=== PATIENT | male | born 1950 | race Caucasian/White ===

== ENCOUNTER 2016-07-07 13:18 | Outpatient (CLI) | payer MEDICARE, OTHER | END 2016-07-07 13:19 | disposition home or self-care (01) | DX: D64.9 Anemia, unspecified (principal); E29.1 Testicular hypofunction ==

== ENCOUNTER 2016-08-02 13:04 | Outpatient (CLI) | payer MEDICARE, OTHER ==
[2016-08-02 18:37] LABS: TOTAL T3 1.03 ng/mL (0.87-1.78)
[2016-08-02 18:48] LABS: THYROID STIMULATING HORMONE 1.88 uIU/mL (0.34-5.60)
== END 2016-08-02 13:05 | disposition home or self-care (01) ==
LOC: LAB.F 13:04
PROVIDERS: ATTEND Internal Medicine Endocrinology, Diabetes & Metabolism
DX: D35.2 Benign neoplasm of pituitary gland (principal)
CPT/HCPCS: 36415; 84439; 84443; 84480

== ENCOUNTER 2016-10-04 10:36 | Outpatient (CLI) | payer MEDICARE, OTHER ==
[2016-10-04 18:44] LABS: BASOPHILS % (AUTO) 0.5 %; EOSINOPHILS # (AUTO) 0.1 10^3/uL (0.0-0.7); EOSINOPHILS % (AUTO) 1.4 %; HCT - HEMATOCRIT 41.2 % (42.0-52.0); LYMPHOCYTES # (AUTO) 1.8 10^3/uL (1.5-3.5); LYMPHOCYTES % (AUTO) 22.8 %; MEAN CORPUSCULAR HEMOGLOBIN 28.8 pg (27.0-31.0); MEAN CORPUSCULAR HGB CONC 33.9 g/dL (32.0-36.0); MEAN CORPUSCULAR VOLUME 84.8 fL (80.0-94.0); MEAN PLATELET VOLUME 7.9 fL (7.4-11.4); MONOCYTES # (AUTO) 0.7 10^3/uL (0.0-1.0); MONOCYTES % (AUTO) 8.7 %; NEUTROPHILS # (AUTO) 5.1 10^3/uL (1.5-6.6); NEUTROPHILS % (AUTO) 66.6 %; NUCLEATED RED BLOOD CELLS AUTO 0.1 /100WBC; RED BLOOD COUNT 4.86 10^6/uL (4.70-6.10); RED CELL DISTRIBUTION WIDTH 12.9 % (12.0-15.0); UNCORRECTED WHITE BLOOD COUNT 7.7 x10^3/uL; WHITE BLOOD COUNT 7.7 x10^3/uL (4.8-10.8)
[2016-10-04 19:01] LABS: FREE T3 3.09 pg/mL (2.5-3.9)
[2016-10-04 19:09] LABS: PROLACTIN 15.93 ng/mL
[2016-10-04 19:11] LABS: ALBUMIN/GLOBULIN RATIO 1.6 (1.0-2.2); BILIRUBIN,TOTAL 0.7 mg/dL (0.2-1.0); CALCIUM 9.1 mg/dL (8.5-10.3); CREATININE 0.9 mg/dL (0.6-1.2); POTASSIUM 3.7 mmol/L (3.5-5.0); TOTAL PROTEIN 6.8 g/dL (6.7-8.2)
[2016-10-04 19:21] LABS: THYROID STIMULATING HORMONE 1.57 uIU/mL (0.34-5.60)
== END 2016-10-04 10:37 | disposition home or self-care (01) ==
LOC: LAB.F 10:36
PROVIDERS: ATTEND Nurse Practitioner Family
DX: E22.1 Hyperprolactinemia (principal); E29.1 Testicular hypofunction; E03.9 Hypothyroidism, unspecified; D64.9 Anemia, unspecified
CPT/HCPCS: 36415; 80053; 82607; 83540; 84146; 84403; 84439; 84443; 84466; 84481; 85025

== ENCOUNTER 2017-03-31 08:26 | Outpatient (CLI) | payer MEDICARE, OTHER ==
[2017-03-31 11:41] LABS: BASOPHILS % (AUTO) 0.4 %; EOSINOPHILS # (AUTO) 0.1 10^3/uL (0.0-0.7); EOSINOPHILS % (AUTO) 1.9 %; HGB - HEMOGLOBIN 10.9 g/dL (14.0-18.0); LYMPHOCYTES # (AUTO) 1.4 10^3/uL (1.5-3.5); LYMPHOCYTES % (AUTO) 18.7 %; MEAN CORPUSCULAR HEMOGLOBIN 26.7 pg (27.0-31.0); MEAN CORPUSCULAR HGB CONC 33.7 g/dL (32.0-36.0); MEAN CORPUSCULAR VOLUME 79.1 fL (80.0-94.0); MEAN PLATELET VOLUME 7.7 fL (7.4-11.4); MONOCYTES # (AUTO) 0.8 10^3/uL (0.0-1.0); MONOCYTES % (AUTO) 10.2 %; NEUTROPHILS # (AUTO) 5.2 10^3/uL (1.5-6.6); NEUTROPHILS % (AUTO) 68.8 %; PLT - PLATELET COUNT 331 10^3/uL (130-450); RED BLOOD COUNT 4.09 10^6/uL (4.70-6.10); RED CELL DISTRIBUTION WIDTH 13.4 % (12.0-15.0); WHITE BLOOD COUNT 7.6 x10^3/uL (4.8-10.8)
[2017-03-31 12:01] LABS: % IRON SATURATION 4 % (20-50); ALBUMIN 3.8 g/dL (3.2-5.5); ALBUMIN/GLOBULIN RATIO 1.4 (1.0-2.2); ALKALINE PHOSPHATASE 53 IU/L (42-121); ALT ALANINE AMINOTRANSFERASE 27 IU/L (10-60); AST ASPARTATE AMINOTRANSFERASE 24 IU/L (10-42); BILIRUBIN,TOTAL 0.5 mg/dL (0.2-1.0); BUN - BLOOD UREA NITROGEN 16 mg/dL (6-20); CALCIUM 8.8 mg/dL (8.5-10.3); CARBON DIOXIDE - CO2 26 mmol/L (21-32); CHLORIDE 105 mmol/L (101-111); CHOLESTEROL 177 mg/dL; CREATININE 0.9 mg/dL (0.6-1.2); GFR - MDRD 84 (>89); GLUCOSE 92 mg/dL (70-100); HDL CHOLESTEROL 59 mg/dL; IRON 17 ug/dL (45-182); LDL CHOLESTEROL,CALCULATED 90 mg/dL; LDL/HDL RATIO 1.5 (<3.6); SODIUM 137 mmol/L (135-145); TOTAL IRON BINDING CAPACITY 469 ug/dL (250-450); TOTAL PROTEIN 6.6 g/dL (6.7-8.2); TRANSFERRIN 335 mg/dL (180-329); VLDL CHOLESTEROL 28 mg/dL
[2017-03-31 12:09] LABS: FREE T3 3.43 pg/mL (2.5-3.9)
[2017-03-31 12:10] LABS: THYROID STIMULATING HORMONE 1.98 uIU/mL (0.34-5.60)
[2017-03-31 12:12] LABS: FREE T4 (FREE THYROXINE) 0.83 ng/dL (0.58-1.64)
[2017-03-31 12:17] LABS: PROLACTIN 9.16 ng/mL
== END 2017-03-31 08:27 | disposition home or self-care (01) ==
LOC: LAB.F 08:26
PROVIDERS: ATTEND Nurse Practitioner Family
DX: E22.1 Hyperprolactinemia (principal); E29.1 Testicular hypofunction; Z13.6 Encounter for screening for cardiovascular disorders; D64.9 Anemia, unspecified; E03.9 Hypothyroidism, unspecified; Z12.5 Encounter for screening for malignant neoplasm of prostate
CPT/HCPCS: 36415; 80053; 80061; 82607; 83540; 84146; 84403; 84439; 84443; 84466; 84481; 85025; G0103; 83721; 84153

== ENCOUNTER 2017-06-06 08:00 | Outpatient (CLI) | payer MEDICARE, OTHER | END 2017-06-06 08:01 | disposition home or self-care (01) | LOC: LAB.F 08:00 | PROVIDERS: ATTEND Nurse Practitioner Family | DX: E22.1 Hyperprolactinemia (principal) | CPT/HCPCS: 36415; 84146 ==

== ENCOUNTER 2017-08-09 10:54 | Outpatient (CLI) | payer MEDICARE, OTHER ==
[2017-08-09 18:09] LABS: CORTISOL 4.6 ug/dL
[2017-08-09 18:15] LABS: FREE T4 (FREE THYROXINE) 0.85 ng/dL (0.58-1.64)
[2017-08-09 18:19] LABS: TOTAL T3 1.21 ng/mL (0.87-1.78)
== END 2017-08-09 10:55 | disposition home or self-care (01) ==
LOC: LAB.F 10:54
PROVIDERS: ATTEND Internal Medicine Endocrinology, Diabetes & Metabolism
DX: D35.2 Benign neoplasm of pituitary gland (principal)
CPT/HCPCS: 36415; 82533; 84439; 84480

== ENCOUNTER 2017-12-19 11:55 | Outpatient (CLI) | payer MEDICARE, OTHER ==
[2017-12-19 17:54] LABS: BASOPHILS % (AUTO) 0.4 %; EOSINOPHILS # (AUTO) 0.1 10^3/uL (0.0-0.7); EOSINOPHILS % (AUTO) 1.2 %; HGB - HEMOGLOBIN 13.6 g/dL (14.0-18.0); LYMPHOCYTES # (AUTO) 1.5 10^3/uL (1.5-3.5); MEAN CORPUSCULAR HEMOGLOBIN 28.8 pg (27.0-31.0); MEAN CORPUSCULAR HGB CONC 34.1 g/dL (32.0-36.0); MEAN CORPUSCULAR VOLUME 84.3 fL (80.0-94.0); MEAN PLATELET VOLUME 8.3 fL (7.4-11.4); MONOCYTES # (AUTO) 0.6 10^3/uL (0.0-1.0); MONOCYTES % (AUTO) 7.3 %; NEUTROPHILS # (AUTO) 5.5 10^3/uL (1.5-6.6); NEUTROPHILS % (AUTO) 71.1 %; PLT - PLATELET COUNT 299 10^3/uL (130-450); RED BLOOD COUNT 4.73 10^6/uL (4.70-6.10); RED CELL DISTRIBUTION WIDTH 13.4 % (12.0-15.0); WHITE BLOOD COUNT 7.7 x10^3/uL (4.8-10.8)
[2017-12-19 18:31] LABS: % IRON SATURATION 21 % (20-50); IRON 91 ug/dL (45-182); TOTAL IRON BINDING CAPACITY 426 ug/dL (250-450); TRANSFERRIN 304 mg/dL (180-329)
[2017-12-19 18:44] LABS: FERRITIN 20.8 ng/mL (23.9-336.2)
[2017-12-19 18:45] LABS: PROLACTIN 6.66 ng/mL
== END 2017-12-19 11:56 | disposition home or self-care (01) ==
LOC: LAB.F 11:55
PROVIDERS: ATTEND Nurse Practitioner Family
DX: E22.1 Hyperprolactinemia (principal); D64.9 Anemia, unspecified
CPT/HCPCS: 36415; 82728; 83540; 84146; 84466; 85025

== ENCOUNTER 2018-06-12 08:00 | Outpatient (CLI) | payer MEDICARE, OTHER ==
[2018-06-12 17:50] LABS: IRON 76 ug/dL (45-182)
[2018-06-12 17:56] LABS: HGB - HEMOGLOBIN 13.6 g/dL (14.0-18.0); MEAN CORPUSCULAR HEMOGLOBIN 27.8 pg (27.0-31.0); MEAN CORPUSCULAR HGB CONC 33.2 g/dL (32.0-36.0); MEAN CORPUSCULAR VOLUME 83.5 fL (80.0-94.0); MEAN PLATELET VOLUME 8.1 fL (7.4-11.4); RED BLOOD COUNT 4.9 10^6/uL (4.70-6.10); RED CELL DISTRIBUTION WIDTH 13.1 % (12.0-15.0); WHITE BLOOD COUNT 7.3 x10^3/uL (4.8-10.8)
[2018-06-12 17:57] LABS: PSA SCREEN (Z12.5) 0.41 ng/mL (0.000-2.000)
[2018-06-12 18:01] LABS: FREE T3 3.68 pg/mL (2.5-3.9); THYROID STIMULATING HORMONE 1.15 uIU/mL (0.34-5.60)
[2018-06-12 18:07] LABS: FERRITIN 16.5 ng/mL (23.9-336.2)
[2018-06-12 18:08] LABS: PROLACTIN 4.2 ng/mL
== END 2018-06-12 23:59 | disposition home or self-care (01) ==
LOC: LAB.S 08:00
PROVIDERS: ATTEND Nurse Practitioner
DX: D64.9 Anemia, unspecified (principal); Z12.5 Encounter for screening for malignant neoplasm of prostate; K50.90 Crohn's disease, unspecified, without complications; E22.1 Hyperprolactinemia; E29.1 Testicular hypofunction; E03.9 Hypothyroidism, unspecified
CPT/HCPCS: 36415; 82607; 82728; 83540; 84146; 84403; 84443; 84481; 85027; G0103; 84153